=== PATIENT | female | born 1945 | race Asian ===

== ENCOUNTER → 2025-03-11 | Outpatient (CLI) | payer MEDICARE ==
--- NOTE | 2025-04-04 13:01 | MM ---
Reason for Exam: Screening (asymptomatic). Patient History: Menarche at age 14. First Full-Term at age 24. Postmenopausal. Risk Values: Divya 5 year model risk: 1.5%. NCI Lifetime model risk: 2.8%. Tissue Density: The breasts are heterogeneously dense, which may obscure small masses. Findings: Analyzed By CAD. There are small scattered benign-appearing round calcifications bilaterally. There is no suspicious group of microcalcifications or suspicious mass in either breast. Overall Assessment: Benign, BI-RAD 2 Management: Screening Mammogram of both breasts in 1 year. . Patient should continue monthly self-breast exams. A clinical breast exam by your physician is recommended on an annual basis. This exam should not preclude additional follow-up of suspicious palpable abnormalities. Note on Divya scores and lifetime risk: 1. A Divya score greater than 3% is considered moderate risk. If this is the case, consider specialist referral to assess eligibility for a risk reducing agent. 2. If overall lifetime risk for the development of breast cancer is 20% or higher, the patient may qualify for future screening with alternating mammogram and breast MRI. [facility], , 04/04/2025 12:58 PM. Electronically signed and approved by: Carlos Rand M.D.
== END | disposition home or self-care (01) ==
LOC: RADMAMWWP 08:21
PROVIDERS: ATTEND Internal Medicine Geriatric Medicine
DX: Z12.31 Encounter for screening mammogram for malignant neoplasm of breast (principal); R92.333 Mammographic heterogeneous density, bilateral breasts; Z78.0 Asymptomatic menopausal state
CPT/HCPCS: 77063; 77067